=== PATIENT | male | born 1965 | race African-American/Black ===

== ENCOUNTER 2021-01-17 16:54 | Emergency (ER) | payer MEDICAID ==
[~2021-01-17] VITALS: Ht 177.8 cm; Wt 86.4 kg
[2021-01-17] MEDS ORDERED: GABA-1216 PO (17:12)
[2021-01-17] MEDS ORDERED: LOSA50TA37 PO (17:12)
[2021-01-17] MEDS ORDERED: METO25 PO (17:12)
[2021-01-17] MEDS ORDERED: DILT120T PO (17:12)
[2021-01-17] MEDS ORDERED: ASPI-1450 PO (17:12)
[2021-01-17] MEDS ORDERED: METF-911 PO (17:12)
[2021-01-17 17:40] LABS: BASOPHILS % (AUTO) 0.8 % (0.0-2.0); HEMATOCRIT 42.3 % (41-53); HEMOGLOBIN 14.2 g/dL (13.5-17.5); LYMPHOCYTES # (AUTO) 1.3 K/uL (1.0-4.8); LYMPHOCYTES % (AUTO) 23.6 % (22.0-44.0); MEAN CORPUSCULAR HEMOGLOBIN 31.3 pg (26.0-34.0); MEAN CORPUSCULAR HGB CONC 33.7 G/dL (31.0-37.0); MEAN CORPUSCULAR VOLUME 93 fL (80-100); MONOCYTES # (AUTO) 0.5 K/uL (0.1-1.0); MONOCYTES % (AUTO) 8.5 % (2.0-9.0); NEUTROPHILS # (AUTO) 3.6 K/uL (1.8-7.7); NEUTROPHILS % (AUTO) 64.1 % (40.0-70.0); PLATELET COUNT (AUTO) 260 K/uL (150-450); RED BLOOD CELL COUNT(AUTO) 4.54 MIL/uL (4.50-5.90); RED CELL DISTRIBUTION WIDTH 13.6 % (11.5-14.5)
[2021-01-17 18:06] LABS: ANION GAP 7 mmol/L (8-16); CALCIUM, TOTAL 9.4 mg/dL (8.8-10.5); CARBON DIOXIDE 31 mmol/L (22-29); CHLORIDE 101 mmol/L (98-107); CREATININE 1.09 mg/dL (0.60-1.30); GLOMERULAR FILTR. RATE CALC > 60 mL/min (>60); GLUCOSE,RANDOM 197 mg/dL (70-110); POTASSIUM 3.8 mmol/L (3.5-5.1); SODIUM SERUM 139 mmol/L (136-145); UREA NITROGEN, BLOOD 8 mg/dL (7-18)
[2021-01-17 18:14] LABS: ALANINE AMINOTRANSFERASE 35 U/L (12-78); ALBUMIN 3.7 g/dL (3.4-5.0); ALKALINE PHOSPHATASE 97 U/L (46-116); ASPARTATE AMINOTRANSFERASE 22 U/L (15-37); BILIRUBIN,TOTAL 0.3 mg/dL (0.1-1.0); TOTAL PROTEIN, SERUM 7.6 g/dL (6.4-8.2)
[2021-01-17 18:16] LABS: B-TYPE NATRIURETIC PEPTIDE 21 pg/mL (0-100)
[2021-01-17] MEDS: DILTIAZEM HCL 60 MG TABLET PO ONE ×2 (19:16→19:56)
[2021-01-17] MEDS ORDERED: DILTIAZEM HCL 5 MG/ML 5 ML VIAL IVP ONE ×2 (19:45→20:15)
[2021-01-17] MEDS ORDERED: LABETALOL HCL 5 MG/ML 20 ML VIAL IVP ONE (20:30)
[2021-01-17 20:45] VITALS: BP 167/87
== END 2021-01-17 20:49 | disposition home or self-care (01) ==
LOC: EMS 16:54
DX: I10 Essential (primary) hypertension (principal); R06.02 Shortness of breath; R00.0 Tachycardia, unspecified; R42 Dizziness and giddiness; E11.9 Type 2 diabetes mellitus without complications; F17.200 Nicotine dependence, unspecified, uncomplicated; Z91.14 Patient's other noncompliance with medication regimen; Z88.5 Allergy status to narcotic agent; Z79.84 Long term (current) use of oral hypoglycemic drugs
CPT/HCPCS: 36415; 71045; 80053; 82962; 83880; 84484; 85025; 93005; 96374; 96376; 99285; J3490 ×2